=== PATIENT | male | born 1965 | race Native Hawaiian/Other Pacific Islander ===

== ENCOUNTER 2017-02-26 23:18 | Inpatient (IN) | payer OTHER ==
[~2017-02-26] VITALS: Ht 165.1 cm; Wt 204.1 kg
[~2017-02-26 23:18] MED LIST: AZITHROMYCIN 2250 MG PO; HYDROCODONE-AP1 EAC6 PO; LO-DOSE ASPIRIN81 M1 PO; LOVASTATIN 20 M20 MG PO; METFORMIN HCL500 MG PO; NITROGLYCERIN0.4 MG SUBLING; PRINIVIL20 M1 PO; PROTONIX40 M1 PO; UNKNOWN BP MED; UNKNOWN CHOLESTEROL; VENTOLIN HFA 1818 GM INH
[2017-02-26 23:20] VITALS: BP 136/96
[2017-02-26] MEDS ORDERED: INVOKANA100 MG PO (23:26)
[2017-02-26 23:40] LABS: HEMATOCRIT 48.9 % (42.0-52.0); HEMOGLOBIN 16.1 gm/dL (14.0-18.0); MCH 28.1 pg (26.0-34.0); MCV 85.1 fL (80.0-100.0); MPV 7.8 fl. (7.2-11.1); NUCLEATED RBCS 0 /100WBC; PLATELET COUNT* 186 thou/uL (150-400); RBC 5.75 mil/uL (4.50-6.00); RDW-CV 14.7 % (10.5-14.5); WBC 10.8 thou/uL (4.0-11.0)
[2017-02-26 23:50] LABS: ANION GAP 11 mmol/L (7-16); BUN 19 mg/dL (7-18); CALCIUM 8.2 mg/dL (8.5-10.1); CHLORIDE 102 mmol/L (98-107); CO2 26 mmol/L (21-32); CREATININE 1.2 mg/dL (0.6-1.3); GLUCOSE 138 mg/dL (70-99); POTASSIUM 3.8 mmol/L (3.5-5.1); SODIUM 139 mmol/L (136-145)
[2017-02-27] LABS: ALBUMIN 3.7 g/dL (3.4-5.0); ALKALINE PHOSPHATASE 101 U/L (46-116); LIPASE 1759 U/L (73-393); NT-PRO BRAIN NAT PEPTIDE 12 pg/mL (<300); SGOT 37 U/L (15-37); SGPT 54 U/L (30-65); TOTAL BILIRUBIN 0.6 mg/dL (<0.1-1.0); TOTAL PROTEIN 7.7 g/dL (6.4-8.2); TROPONIN-I LEVEL <0.06 ng/mL (<0.06)
[2017-02-27 00:14] LABS: INR 1.1; PROTIME 10.7 Seconds (9.20-11.50)
[2017-02-27 00:40] LABS: ABSOLUTE EOSINOPHILS 0.2 thou/uL (0.0-0.7); ABSOLUTE MONOCYTES 0.3 thou/uL (0.0-1.2); ABSOLUTE NEUTROPHILS 9.3 thou/uL (1.6-8.1); ANISOCYTOSIS Occasional
[2017-02-27 00:41] LABS: PLATELET ESTIMATE ADEQUATE
[2017-02-27 01:35] VITALS: BP 144/81
[2017-02-27] MEDS ORDERED: TRAMADOL 50 MG50 MG PO (07:57)
[2017-02-27 08:00] VITALS: BP 122/80
[2017-02-27 11:51] VITALS: BP 120/79
[2017-02-27 12:38] LABS: URINE BILIRUBIN NEGATIVE (Negative); URINE BLOOD NEGATIVE (Negative); URINE CLARITY CLEAR; URINE COLOR YELLOW; URINE GLUCOSE-RANDOM 2+ (Negative); URINE KETONES 1+ (Negative); URINE LEUKOCYTES-REFLEX NEGATIVE (Negative); URINE NITRITE-REFLEX NEGATIVE (Negative); URINE PROTEIN 1+ (Negative); URINE UROBILINOGEN 0.2 E.U./dl (0.2-1.0)
--- NOTE | 2017-02-27 13:13 | EKG ---
[place] [address] ELECTROCARDIOGRAM REPORT Name: DEEJAY FARIASDeidra Room: [address] ADM IN .R.#: [id number] Admission: 02/27/17 Attend Phys: Kasey Reynoso MD Discharge: Date of : 63 Report #: [id number] THIS REPORT FOR: //name// [facility] ED Test Date: 2017-02-26 Test Time: 23:24:22 Pat Name: DEEJAY FARIAS Department: Room: [facility] Gender: M Motion Picture Cameraman: : 1965 Requested By: Mary Villarreal Order Number: [id number] MD: Jacoby Rocha Measurements Intervals [place] Rate: 106 P: 38 WY: 153 QRS: -54 QRSD: 93 T: 54 QT: 343 QTc: 456 Interpretive Statements Sinus tachycardia Left anterior fascicular block Abnormal R-wave progression, early transition Baseline wander in lead(s) II,III,aVF,V5 Compared to ECG 08/14/2016 12:11:33 Sinus rhythm no longer present Electronically Signed On 02-27-2017 13:13:00 COOPERATIVE EDUCATION COORDINATOR by Jacoby Rocha [email or web address] <ELECTRONICALLY SIGNED> By: Jacoby Rocha MD, FACC 02/27/17 1313 2324 2324 Jacoby Rocha MD, FACC /EPI
[2017-02-27 16:19] VITALS: BP 112/66
--- NOTE | 2017-02-27 16:22 | 2DMMODE ---
[place] [address] 2 D/M-MODE ECHOCARDIOGRAM Name: TWAN FAR[facility]ARCELIA [facility] Room: [address] IN [facility]#: [id number] Admission: 02/27/17 Attend Phys: Kasey Reynoso, Discharge: Date of : 63 Date of Service: 02/27/17 1621 Report #: [id number] THIS REPORT FOR: //name// APPROVED REPORT Study performed: 02/27/2017 13:45:29 EXAM: Comprehensive 2D, Doppler, and color-flow Echocardiogram Patient Location: In-Patient Room #: 203 Status: routine BSA: 2.76 HR: 70 bpm BP: 144/81 mmHg Rhythm: NSR Other Information Technically limited study due to body habitus. Indications Pulmonary Embolism Dyspnea Chest Pain Echo Enhancing Agent Indication: Endocardial border delineation Agent(s) / Amount(s) Used: Optison 3 cc 2D Dimensions LVEF(%): 80.32 (>50%) IVSd: 15.11 (7-11mm) LVOT Diam: 22.56 (18-24mm) LVDd: 46.64 mm PWd: 11.47 (7-11mm) Ascending Ao: 34.79 (22-36mm) LVDs: 23.82 (25-40mm) Aortic Root: 36.50 mm Suarez's LVEF: 80.32 % Mitral Valve E/A Ratio: 0.90 MV Decel. Time: 171.66 ms MV E Max Rohan.: 0.91 m/s MV PHT: 49.78 ms MVA (PHT): 4.42 [place]2 [place] [address] 2 D/M-MODE ECHOCARDIOGRAM Name: DEE[facility]AS [facility] Room: [address] IN [facility]#: [id number] Admission: 02/27/17 Attend Phys: Kasey Reynoso, Discharge: Date of : 63 Date of Service: 02/27/17 1621 Report #: [id number] Pulmonary Valve PV Peak Rohan.: 0.93 m/s PV Peak Gr.: 3.45 mmHg Tricuspid Valve TR Peak Gr.: 43.24 mmHg RVSP: 48.00 mmHg Left Ventricle The left ventricle is normal size. There is normal LV segmental wall motion. Mild to moderate concentric left ventricular hypertrophy. Left ventricular systolic function is normal. The left ventricular ejection fraction is within the normal range. LVEF is 55-60%. Grade I - abnormal relaxation pattern. Right Ventricle The right ventricle is normal size. The right ventricular systolic function is normal. Atria The left atrium size is normal. The right atrium size is normal. Aortic Valve The aortic valve is normal in structure. No aortic regurgitation is present. There is no aortic valvular stenosis. Mitral Valve The mitral valve is normal in structure. There is no mitral valve regurgitation noted. No evidence of mitral valve stenosis. Tricuspid Valve The tricuspid valve is normal in structure. Trace tricuspid regurgitation. The RVSP is 45-50 mmHg. Pulmonic Valve The pulmonary valve is normal in structure. There is no pulmonic valvular regurgitation. Great Vessels The aortic root is normal in size. IVC is normal in size and collapses with >50% inspiration Pericardium There is no pericardial effusion. <Conclusion> The left [place] [address] 2 D/M-MODE ECHOCARDIOGRAM Name: DEEJAY FARIAS Room: [address] IN M.R.#: [id number] Admission: 02/27/17 Attend Phys: Kasey Reynoso, Discharge: Date of : 63 Date of Service: 02/27/171620 Report #: [id number] Mild to moderate concentric left ventricular hypertrophy. Left ventricular systolic function is normal. The left ventricular ejection fraction is within the normal range. LVEF is 55-60%. Grade I - abnormal relaxation pattern. Trace tricuspid regurgitation. The RVSP is 45-50 mmHg. <ELECTRONICALLY SIGNED> By: Roel Whitney MD, [facility] 02/27/17 162 20 20 Roel Whitney MD, FACC /INF
[2017-02-27 20:24] VITALS: BP 131/88
[2017-02-28 00:05] VITALS: BP 112/69
[2017-02-28 01:08] LABS: CHOLESTEROL 141 mg/dL (<200); HDL CHOLESTEROL 38 mg/dL (>40); LDL CHOLESTEROL 80 mg/dL (<100); TC:HDL 3.7 Ratio (Not establshd); TRIGLYCERIDE 116 mg/dL (<150); VLDL 23 mg/dL (<40)
[2017-02-28 01:09] LABS: SERUM ASSESSMENT CLEAR
[2017-02-28 04:00] VITALS: BP 116/77
--- NOTE | 2017-02-28 07:25 | CON ---
[address] [address] CONSULTATION Name: DEEJAY FARIAS [facility] [[email or web address]Deidra Room: [address] IN M.R.#: [id number] Admission: 02/27/17 Attend Phys: Kasey Reynoso MD Discharge: Date of : 63 Report #: [id number] THIS REPORT FOR: //name// CC: Kasey LEWIS REQUESTING PHYSICIAN: Ervin Carroll DO REASON FOR CONSULTATION: Pulmonary embolism and abnormal CAT scan. DISCUSSION: The patient is a very pleasant 51-year-old man who presented to the emergency department yesterday afternoon. He had a several day history of increasing shortness of breath. He was also intermittently having some chest pain. He points to the front part of his chest. It was episodic. He also noted that he almost passed out when he had walked to the bathroom at work. This was a definite new finding for him. He presented to the emergency department. He had lab x-rays done. CT scan done of his chest did reveal bilateral pulmonary emboli. He has been started on IV heparin. Findings also raise the possibility of infiltrate and/or mass. He is a remote smoker, quitting 40 years ago. No prior history of known pulmonary disease. Retrospectively, he does know he has had some intermittent cough. Not bring up any sputum. He initially denied fevers, but now retrospectively, he is also noting that he has had some breaking out in sweats when he was not really exerting himself. He had generalized body aches yesterday. He has had no prior history of thromboembolic disease or heart disease that he is aware of. He is a diabetic. He has had no recent trips over the last several months where he has been confined. He is fairly active with his job. Though, he notes he has been working essentially 7 days a week in long hours. He is up and down a lot and is very active that way, though he typically does not have to walk long distances. PAST MEDICAL HISTORY: Remarkable for diabetes mellitus type 2, hypertension, has had knee surgery in the past, peptic ulcer disease, and H. pylori. HOME MEDICATIONS: Metformin, lovastatin, Invokana, and lisinopril. SOCIAL HISTORY: Very remote smoker. He is , has 3 children. Works fulltime. He has been in [employer] close to 40 years. FAMILY HISTORY: Negative for thromboembolic disease. Positive for heart disease. REVIEW OF SYSTEMS: No positives as above. He has had some right shoulder pain, which he relates from an injury at work. [place] [address] CONSULTATION Name: DEEJAY FARIAS [facility] [[email or web address]Deidra Room: [address] IN .R.#: [id number] Admission: 02/27/17 Attend Phys: Kasey Reynoso MD Discharge: Date of : 63 Report #: [id number] He has not had any actual syncopal episodes, so he has come close. He has had the sweats as noted. Denies any difficulty swallowing. No vomiting. Denies any blood in his stools. He does tend have a little edema of his lower extremities. He does have some left calf pain. PHYSICAL EXAMINATION: GENERAL APPEARANCE: An obese, man. Alert, cooperative, quite pleasant. His O2 running via nasal cannula. He is in no acute distress at rest. He is currently pain free. He notes he does feel a little better than what he did yesterday when he first came in. HEENT: Head is normocephalic. Sclerae are nonicteric. NECK: Large, but supple without adenopathy. No JVD is noted. HEART: Tones are distant, but appear regular. No S3 is heard. LUNGS: Sounds are clear. Breath sounds are mildly diminished. related to his large body habitus. No wheezing or crackles are heard. No pleural rubs. He has no clubbing. ABDOMEN: Obese, but soft. EXTREMITIES: Lower extremities does have some trace pretibial edema. No definite cords are noted. He does complain of some discomfort in his left calf with palpation. SKIN: Warm and dry. NEUROLOGIC: He is alert and oriented x3. LABORATORY AND X-RAY FINDINGS: On his lab, BUN is 19, creatinine of 1.2, potassium is 3.8, bicarb of 26. Lipase 1759, calcium 8.2, AST 37, albumin 3.7. D-dimer was 15.39. PT and PTT were normal. White blood cell count 10,800, hemoglobin 16.1, hematocrit of 48.9 and platelets 186,000. Blood cultures were sent yesterday. His CT chest was reviewed. I also reviewed it with one of the radiologist. He does have bilateral pulmonary emboli seen. He does appear to have infiltrate versus mass posterior to the right hilum. Associated adenopathy in the right hilar area. There is also some sclerotic bone lesions, but they are not associated with any destructive bone lesions. EKG revealed sinus tachycardia. IMPRESSION: 1. Bilateral pulmonary emboli. Now on Heparin. 2. Abnormal CT scan. Possible mass versus infiltrate. Retrospectively, he has had some cough, generalized achiness, and malaise. Much of the findings noted on the CT scan may be pneumonia. It is certainly possible he could have an underlying malignancy. 3. Morbid obesity. 4. Elevated lipase. Etiology not clear. Has lack of GI findings and his pancreas was unremarkable on CT scan. 5. Diabetes mellitus [place] 2[place] [address] CONSULTATION Name: FANY FARIASCARLOS MUIRDeidra Room: [address] IN [place].#: [id number] Admission: 02/27/17 Attend Phys: Kasey Reynoso MD Discharge: Date of : 63 Report #: [id number] RECOMMENDATIONS: 1. At this point, need to treat his pulmonary emboli. Fully anticoagulate. Need to look into oral anticoagulation options he may have. 2. Treat for pneumonia (agree with current antibiotics). 3. We will also check viral panel. 4. We will need followup imaging in the future. I did discuss this with him. If the infiltrates do not clear, may need to consider biopsy. Did review with the radiologist, and if a biopsy is needed in the future, a CT-guided biopsy would probably provide the best yield. <ELECTRONICALLY SIGNED> By: Makenzie Coley MD 02/28/17 0725 1102 [id number] Coley MD /nt
[2017-02-28 08:00] VITALS: BP 137/79
[2017-02-28 12:12] VITALS: BP 142/88
[2017-02-28 16:19] VITALS: BP 116/74
[2017-02-28 19:50] VITALS: BP 114/77
[2017-03-01 00:08] VITALS: BP 104/83
[2017-03-01 04:05] VITALS: BP 120/82
[2017-03-01] MEDS ORDERED: XARELTO15 MG PO (08:15)
[2017-03-01] MEDS ORDERED: ATORVASTATIN CA20 MG PO (08:15)
[2017-03-01] MEDS ORDERED: AUGMENTIN 875-1 EACH PO (08:15)
[2017-03-01] MEDS ORDERED: XARELTO20 MG PO (08:15)
[2017-03-01 08:30] VITALS: BP 136/59
[2017-03-01 11:24] LABS: CALCIUM 8.2 mg/dL (8.5-10.1)
[2017-03-01 12:22] VITALS: BP 116/84
[2017-03-01 16:14] VITALS: BP 124/73
[2017-03-01 20:41] VITALS: BP 124/76
[2017-03-02] VITALS: BP 118/81
[2017-03-02 04:07] VITALS: BP 120/79
[2017-03-02 04:53] LABS: HEMATOCRIT 41.5 % (42.0-52.0); HEMOGLOBIN 13.5 gm/dL (14.0-18.0); MCH 27.7 pg (26.0-34.0); MCHC 32.6 g/dL (28.0-37.0); MPV 7.5 fl. (7.2-11.1); RBC 4.89 mil/uL (4.50-6.00); RDW-CV 14.7 % (10.5-14.5); WBC 9.1 thou/uL (4.0-11.0)
[2017-03-02 05:05] LABS: POTASSIUM 3.9 mmol/L (3.5-5.1)
[2017-03-02 07:45] VITALS: BP 148/86
[2017-03-02] MEDS ORDERED: OXYCODONE HCL 55 MG PO (10:30)
[2017-03-02 10:40] VITALS: BP 148/86
[2017-03-02 11:09] VITALS: BP 148/86
[2017-03-02 13:02] VITALS: BP 148/86
[2017-03-04 02:05] LABS: ADENOVIRUS Negative (Negative); INFLUENZA A Negative (Negative); INFLUENZA B Negative (Negative); METAPNEUMOVIRUS Negative (Negative); PARAINFLUENZA 1 Negative (Negative); PARAINFLUENZA 2 Negative (Negative); PARAINFLUENZA 3 Negative (Negative); RHINOVIRUS Negative (Negative); RSV A Negative (Negative); RSV B Negative (Negative)
--- NOTE | 2017-03-11 16:26 | CON ---
[address] [address] CONSULTATION Name: [facility] Room: [address]#: [id number] Admission: 02/27/17 Attend Phys: Kasey Reynoso MD Discharge: 03/02/17 Date of : 63 Report #: [id number] THIS REPORT FOR: //name// CC: Dai Reynoso [facility] DICTATED BY: Marilia Castillo [facility] DATE OF SERVICE: 02/27/2017 Please note at the time of this dictation, the patient was seen and physically examined by myself. REASON FOR CONSULTATION: Pancreatitis. HISTORY OF PRESENT ILLNESS: This is a 51-year-old male presented to the Emergency Room with some left-sided chest pain that started yesterday. He states the chest pain was intermittent in nature and he began to have some more shortness of breath, radiating. Denied any radiation or any nausea or vomiting with any of this. He states he has had a lot of stress lately and has not been getting enough sleep due to the increased workload in his job. The patient has never had a heart attack or any other cardiovascular incidences before. He has never seen a workforce management manager either. The patient did recently start Invokana for his diabetes approximately 2 months ago. ALLERGIES: No known drug allergies. MEDICATIONS FROM HOME: Include metformin, Mevacor, Prinivil and Invokana. PAST MEDICAL HISTORY: Type 2 diabetes, hypertension, and high cholesterol. PAST SURGICAL HISTORY: Bilateral knee surgery. FAMILY HISTORY: Negative for any GI or female cancers. SOCIAL HISTORY: Denies any alcohol, tobacco or illegal drug use. REVIEW OF SYSTEMS: Twelve-point review of systems is essentially negative except what is mentioned in the HPI. PHYSICAL EXAMINATION: VITAL SIGNS: Temperature 36.5, pulse 86, respirations 21, blood pressure 120/79. HEART: Regular rate and rhythm. L[place]GS: [place] [address] CONSULTATION Name: DEE[facility]AS [facility] Room: [address]#: [id number] Admission: 02/27/17 Attend Phys: Kasey Reynoso MD Discharge: 03/02/17 Date of : 63 Report #: [id number] ABDOMEN: Soft, positive bowel sounds in all 4 quadrants with tenderness noted in the epigastric to left and right upper quadrant areas. NEUROLOGIC: The patient is morbidly obese. LABORATORY DATA: Hemoglobin 16.1, hematocrit 48.9, white count is 10.8, platelets 186. PT is 10.7, INR 1.1. Sodium 139, potassium 3.8, chloride 102, CO2 26, BUN is 19, creatinine is 1.2, GFR 64, glucose is 138. LFTs are completely normal. Lipase is 1759. CT showed a right lower lobe lung mass, likely pneumonia with some reactive adenopathy noted. Also, he had a positive D-dimer that was 15.39 and indicative of PE also noted on CT scan. IMPRESSION: 1. Elevated lipase. 2. Pneumonia. 3. Pulmonary embolism. 4. Anticoagulant therapy, heparin. 5. Diabetic. PLAN: 1. We will stop his Invokana, may be likely cause for his elevated lipase since he recently started 2 months ago. 2. Continue his IV fluids. 3. The patient will need an outpatient colon screening since he has never had one and he is greater than 50 years old. 4. We will check lipids in the a.m. Thank you for allowing us to participate in this patient's care. Please do not hesitate to call with any questions in regard to this consult. <ELECTRONICALLY SIGNED> By: Randy Arboleda MD 03/11/17 1626 1220 1846Randy Arboleda MD /nt
--- NOTE | 2017-03-11 16:26 | CON ---
[address] [address] CONSULTATION Name: DEEJAY FAR[facility]AS [facility] Room: [address] IN M.R.#: [id number] Admission: 02/27/17 Attend Phys: Kasey Reynoso MD Discharge: 03/02/17 Date of : 63 Report #: [id number] THIS REPORT FOR: //name// CC: Kasey DE JESUSCKMAN DATE OF SERVICE: 02/27/2017 ADDENDUM This is an addendum to consult #[id number]. This is a 51-year-old male with morbid obesity, who presented with elevated lipase of 1700. The patient has recently been started on Invokana for the past 2 months. He has diabetes mellitus and on chronic anticoagulation therapy. During this hospitalization, he was found to have pulmonary embolism for which he is being treated. We will stop the Invokana as this can cause pancreatitis. There is no evidence of biliary causes of pancreatitis. I will also check lipids to make sure that he does not have hypertriglyceridemia. We will continue IV fluids and follow up on his lipase. <ELECTRONICALLY SIGNED> By: Randy Arboleda MD 03/11/17 1626 1413 2137Randy Arboleda MD /nt
--- NOTE | 2017-03-24 09:42 | CON ---
[address] [address] CONSULTATION Name: DEEJAY [facility]ARIAS [facility] Room: [address] IN ..#: [id number] Admission: 02/27/17 Attend Phys: Kasey Reynoso MD Discharge: 03/02/17 Date of : 63 Report #: [id number] THIS REPORT FOR: //name// CC: Kasey LEWIS DICTATED BY: Jacoby Lowe DO, RESIDENT ORTHOPEDIC CONSULTATION CHIEF COMPLAINT: Right shoulder pain. HISTORY OF PRESENT ILLNESS: The patient is a very pleasant 51-year-old male admitted to [facility] on 02/27/2017 secondary to chest pain. He has history of diabetes, hypertension and elevated lipase. He was diagnosed with bilateral pulmonary emboli as well as acute pancreatitis. We are consulted for right shoulder pain. He is scheduled to potentially go home tomorrow in regards to the right shoulder. He states that around Day, he was at work and he was going to life a bin, he felt a pop and pain in his right shoulder. Prior to this, he had no significant pain. Reportedly, there has been an MRI done at outpatient facility, which we are unable to obtain over the weekend, which he stated there was some pathology seen on this MRI, but he is not sure what the terminology was. He is right-hand dominant. He complains of pain with any motion of the shoulder and lifting with the right arm. He has difficulty sleeping on that side. PAST MEDICAL HISTORY: Significant for bronchitis, chest pain, elevated lipase, pancreatitis, pulmonary embolism and shortness of breath. ALLERGIES: No known drug allergies. REVIEW OF SYSTEMS: A 14-point review of systems was obtained, negative other than mentioned above. PHYSICAL EXAMINATION: GENERAL: He is alert and oriented, in no acute distress. EYES: Extraocular muscles are fully intact. NARES: No rhinitis or epistaxis. Nasal cannula in place. HEART: Regular. LUNGS: No increased respiratory effort. EXTREMITIES: Examination of the right shoulder shows he does have pain with any flexion or abduction above 40 degrees. Exam is quite difficult secondary to pain. He is tender over the acromion and the trapezius muscle. Distal motor and sensory grossly intact. X-rays 3 views of the right shoulder reviewed today and I did discuss with Dr. Yaron Bliss, radiologist, what appears to be a base of the [place] [address] CONSULTATION Name: DEEJAY FARIAS Room: [address] IN [facility]#: [id number] Admission: 02/27/17 Attend Phys: Kasey Reynoso MD Discharge: 03/02/17 Date of : 63 Report #: [id number] fracture, less like an os acromiale. IMPRESSION: A 4- or 5-week history of right shoulder pain with x-ray findings consistent with possible base of the acromion fracture nondisplaced versus os acromiale. TREATMENT PLAN: Discussed in detail with the patient. Again, unfortunately, we are unable to obtain MRI over the weekend as this was done at an outpatient facility at [place]. His exam is consistent with possible base of the acromion fracture. We will get him a sling. Unfortunately, we cannot do a steroid shot as if this is a fracture, this can impede the healing. I would like him to avoid any heavy lifting with that hand. We should probably repeat x-rays in 10 to 14 days. If this were a fracture, this could take 8-12 weeks to heal, should not need any surgical intervention. 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 He can ice the shoulder as needed for pain as well. <ELECTRONICALLY SIGNED> By: Jacoby Lowe DO 03/24/17 0942 1402 [id number] Lowe DO /nt
== END 2017-03-02 14:17 | disposition home or self-care (01) | DRG 177 ==
LOC: M.ERS 23:18 → M.TBA-ER 02-27 00:38 → M.ERS 02-27 00:38 → M.2W 02-27 02:14 → M.TBA-ER 02-27 02:14 → M.2W 02-27 02:55
PROVIDERS: Emergency Medicine; Internal Medicine; Internal Medicine Pulmonary Disease; Nurse Practitioner Adult Health; ADMIT Internal Medicine
DX: J15.6 Pneumonia due to other Gram-negative bacteria (principal); K85.90 Acute pancreatitis without necrosis or infection, unspecified; I26.99 Other pulmonary embolism without acute cor pulmonale; Z68.45 Body mass index [BMI] 70 or greater, adult; J18.9 Pneumonia, unspecified organism; Z79.899 Other long term (current) drug therapy; R59.9 Enlarged lymph nodes, unspecified; E78.5 Hyperlipidemia, unspecified; E66.01 Morbid (severe) obesity due to excess calories; E11.9 Type 2 diabetes mellitus without complications; I10 Essential (primary) hypertension; E78.00 Pure hypercholesterolemia, unspecified; Z87.891 Personal history of nicotine dependence; Z87.11 Personal history of peptic ulcer disease; Z79.01 Long term (current) use of anticoagulants

== ENCOUNTER 2017-03-09 17:50 | Emergency (ER) | payer OTHER ==
[~2017-03-09] VITALS: Ht 162.6 cm; Wt 204.1 kg
[~2017-03-09 17:50] MED LIST changes: +ATORVASTATIN CA20 MG PO; +AUGMENTIN 875-1 EACH PO; +INVOKANA100 MG PO; +OXYCODONE HCL 55 MG PO; +TRAMADOL 50 MG50 MG PO; +XARELTO15 MG PO; +XARELTO20 MG PO
[2017-03-09 18:32] LABS: ABSOLUTE BASOPHILS 0.1 thou/uL (0.0-0.2); ABSOLUTE EOSINOPHILS 0.5 thou/uL (0.0-0.7); ABSOLUTE LYMPHOCYTES 1.5 thou/uL (0.8-5.3); ABSOLUTE MONOCYTES 0.6 thou/uL (0.0-1.2); ABSOLUTE NEUTROPHILS 8.1 thou/uL (1.6-8.1); BASOPHILS 0.6 %; EOSINOPHILS 4.5 %; HEMOGLOBIN 13.6 gm/dL (14.0-18.0); LYMPHOCYTES 14.3 %; MCH 27.6 pg (26.0-34.0); MCHC 32.4 g/dL (28.0-37.0); MCV 85.4 fL (80.0-100.0); MONOCYTES 5.4 %; MPV 7.8 fl. (7.2-11.1); NUCLEATED RBCS 0 /100WBC; PLATELET COUNT* 220 thou/uL (150-400); POLYS 75.2 %; RBC 4.92 mil/uL (4.50-6.00); RDW-CV 14.7 % (10.5-14.5); WBC 10.7 thou/uL (4.0-11.0)
[2017-03-09 18:39] LABS: ANION GAP 8 mmol/L (7-16); BUN 18 mg/dL (7-18); CALCIUM 8.9 mg/dL (8.5-10.1); CHLORIDE 101 mmol/L (98-107); CO2 28 mmol/L (21-32); CREATININE 0.9 mg/dL (0.6-1.3); GLUCOSE 203 mg/dL (70-99); POTASSIUM 3.8 mmol/L (3.5-5.1); SODIUM 137 mmol/L (136-145)
[2017-03-09 18:42] LABS: APTT 28.3 Seconds (25.0-31.3); INR 1.1; PROTIME 10.6 Seconds (9.20-11.50)
[2017-03-09 18:50] LABS: ALBUMIN 3.1 g/dL (3.4-5.0); ALKALINE PHOSPHATASE 70 U/L (46-116); NT-PRO BRAIN NAT PEPTIDE 15 pg/mL (<300); SGOT 20 U/L (15-37); SGPT 31 U/L (30-65); TOTAL BILIRUBIN 0.2 mg/dL (<0.1-1.0); TROPONIN-I LEVEL <0.06 ng/mL (<0.06)
[2017-03-09 21:08] VITALS: BP 140/83
--- NOTE | 2017-03-10 11:19 | EKG ---
[place] [address] ELECTROCARDIOGRAM REPORT Name: DEEJAY FARIAS Room: [facility]#: [id number] Admission: 03/09/17 Attend Phys: Discharge: 03/09/17 Date of : 63 Report #: [id number] THIS REPORT FOR: //name// [facility] ED Test Date: 2017-03-09 Test Time: 17:57:10 Pat Name: DEEJAY FARIAS Department: Room: Gender: M Process Technician: JUAN : 1965 Requested By: Alejandro Tomas Order Number: [id number] MD: Jacoby Rocha Measurements Intervals [place] Rate: 82 P: 42 WV: 163 QRS: -32 QRSD: 93 T: 77 QT: 382 QTc: 446 Interpretive Statements Sinus rhythm Left axis deviation Low voltage, precordial leads Abnormal R-wave progression, early transition Compared to ECG 02/26/2017 23:24:22 Sinus tachycardia no longer present Electronically Signed On 03-10-2017 11:19:33 STRIP PICKER by Jacoby Rocha [email or web address] <ELECTRONICALLY SIGNED> By: Jacoby Rocha MD, [facility] 03/10/17 1119 1757 1757 Jacoby Rocha MD, [facility] /EPI
== END 2017-03-09 21:08 | disposition home or self-care (01) ==
LOC: M.ERS 17:50
PROVIDERS: Family Medicine
DX: I26.99 Other pulmonary embolism without acute cor pulmonale (principal); R06.00 Dyspnea, unspecified; I10 Essential (primary) hypertension; E11.9 Type 2 diabetes mellitus without complications; E78.00 Pure hypercholesterolemia, unspecified

== ENCOUNTER 2017-03-21 16:36 | Inpatient (IN) | payer OTHER ==
[~2017-03-21] VITALS: Ht 172.7 cm; Wt 186.9 kg
[2017-03-21 16:41] VITALS: BP 174/98
[2017-03-21 17:18] LABS: ABSOLUTE EOSINOPHILS 0.4 thou/uL (0.0-0.7); ABSOLUTE LYMPHOCYTES 1.4 thou/uL (0.8-5.3); ABSOLUTE MONOCYTES 0.6 thou/uL (0.0-1.2); ABSOLUTE NEUTROPHILS 10.5 thou/uL (1.6-8.1); BASOPHILS 0.3 %; EOSINOPHILS 3.2 %; HEMATOCRIT 41.9 % (42.0-52.0); HEMOGLOBIN 13.7 gm/dL (14.0-18.0); MCH 27.6 pg (26.0-34.0); MCHC 32.7 g/dL (28.0-37.0); MCV 84.4 fL (80.0-100.0); MONOCYTES 4.6 %; NUCLEATED RBCS 0 /100WBC; PLATELET COUNT* 163 thou/uL (150-400); POLYS 80.9 %; RBC 4.97 mil/uL (4.50-6.00); RDW-CV 14.7 % (10.5-14.5); WBC 13.1 thou/uL (4.0-11.0)
[2017-03-21 17:32] LABS: ANION GAP 9 mmol/L (7-16); BUN 17 mg/dL (7-18); CALCIUM 8.8 mg/dL (8.5-10.1); CHLORIDE 102 mmol/L (98-107); CO2 30 mmol/L (21-32); CREATININE 1.1 mg/dL (0.6-1.3); GLUCOSE 114 mg/dL (70-99); SODIUM 141 mmol/L (136-145)
[2017-03-21 17:33] LABS: APTT 29.1 Seconds (25.0-31.3); INR 1.1; PROTIME 10.7 Seconds (9.20-11.50)
[2017-03-21 17:49] LABS: ALBUMIN 3.4 g/dL (3.4-5.0); ALKALINE PHOSPHATASE 83 U/L (46-116); CK-MB MASS 1.7 ng/mL (<0.5-3.6); LIPASE 198 U/L (73-393); MAGNESIUM 1.7 mg/dL (1.8-2.4); NT-PRO BRAIN NAT PEPTIDE 48 pg/mL (<300); SGOT 25 U/L (15-37); SGPT 36 U/L (30-65); TOTAL BILIRUBIN 0.5 mg/dL (<0.1-1.0); TOTAL PROTEIN 7.3 g/dL (6.4-8.2); TROPONIN-I LEVEL <0.06 ng/mL (<0.06)
[2017-03-21 20:00] VITALS: BP 174/100
[2017-03-21 20:15] VITALS: BP 107/66
[2017-03-22 00:20] VITALS: BP 143/94
[2017-03-22 04:21] VITALS: BP 123/77
[2017-03-22 05:26] LABS: ABSOLUTE EOSINOPHILS 0.4 thou/uL (0.0-0.7); ABSOLUTE LYMPHOCYTES 1.3 thou/uL (0.8-5.3); ABSOLUTE MONOCYTES 0.7 thou/uL (0.0-1.2); ABSOLUTE NEUTROPHILS 8.9 thou/uL (1.6-8.1); BASOPHILS 0.3 %; EOSINOPHILS 3.7 %; HEMATOCRIT 40.4 % (42.0-52.0); HEMOGLOBIN 13.4 gm/dL (14.0-18.0); LYMPHOCYTES 11.8 %; MCH 27.6 pg (26.0-34.0); MCHC 33.2 g/dL (28.0-37.0); MCV 83.3 fL (80.0-100.0); MONOCYTES 5.9 %; MPV 7.4 fl. (7.2-11.1); NUCLEATED RBCS 0 /100WBC; PLATELET COUNT* 150 thou/uL (150-400); POLYS 78.3 %; RBC 4.84 mil/uL (4.50-6.00); RDW-CV 14.8 % (10.5-14.5); WBC 11.4 thou/uL (4.0-11.0)
--- NOTE | 2017-03-22 05:34 | NUR ---
PATIENT [facility]. PATIENT ACCOMPANIED BY ED NURSING STAFF AND SPOUSE. PATIENT ACCLIMATED TO FLOOR, ROOM, AND CALL LIGHT. PATIENT ON 2L O2 AND SATTING AT WELL ABOVE 95%. LUNG SOUNDS COURSE/CRACKLES, BUT PATIENT DENIES COUGH. PULMONOLOGY CONSULT ORDERED. PATIENT VOICED CONCERNS ABOUT RECURRING ILLNESS AND HIS EMPLOYMENT. PATIENT HAS REQUESTED TO SPEAK WITH PHYSICIANS ABOUT FMLA IN ORDER TO SECURE HIS POSITION WITHIN HIS WORKPLACE. PATIENT CURRENTLY A/O X 4 AND VSS. OURLY ROUNDS PERFORMED. NURSING TO FOLLOW UP NECESSARY. ALL FALL PRECAUTIONS IN PLACE, INCLUDING CALL LIGHT WITHIN REACH. WILL CONTINUE TO MONITOR CLOSELY.
[2017-03-22 06:29] LABS: CALCIUM 8.8 mg/dL (8.5-10.1); MAGNESIUM 1.8 mg/dL (1.8-2.4); POTASSIUM 3.9 mmol/L (3.5-5.1)
[2017-03-22 08:15] VITALS: BP 136/91
--- NOTE | 2017-03-22 11:46 | EKG ---
[place] [address] ELECTROCARDIOGRAM REPORT Name: NIKTWAN SHARMAARCELIA WOODDeidra Room: [address] ADM IN .R.#: [id number] Admission: 03/21/17 Attend Phys: Moe Flor MD Discharge: Date of : 63 Report #: [id number] THIS REPORT FOR: //name// [facility] ED Test Date: 2017-03-21 Test Time: 16:42:33 Pat Name: DEEJAY FARIAS Department: Room: [facility] Gender: M Chemical Research Engineer: FRANKO : 1965 Requested By: Davis Cuellar Order Number: [id number] MD: Roel Whitney Measurements Intervals [place] Rate: 90 P: 44 WV: 154 QRS: -11 QRSD: 90 T: 71 QT: 364 QTc: 446 Interpretive Statements Sinus rhythm Low voltage, precordial leads Abnormal R-wave progression, early transition Minimal ST elevation, inferior leads Compared to ECG 03/09/2017 17:57:10 ST (T wave) deviation now present Left-axis deviation no longer present Electronically Signed On 03-22-2017 11:46:31 MANAGER SOLUTION by Roel Whitney [email or web address] <ELECTRONICALLY SIGNED> By: Roel Whitney MD, FACC 03/22/17 1146 1642 1642 Roel Whitney MD, FACC /EPI
--- NOTE | 2017-03-22 13:08 | CON ---
[address] [address] CONSULTATION Name: TWAN FARIASARCELIA [facility] Room: [address] IN M.R.#: [id number] Admission: 03/21/17 Attend Phys: Moe Flor MD Discharge: Date of : 63 Report #: [id number] THIS REPORT FOR: //name// CC: Moe Flor [facility] DATE OF SERVICE: 03/22/2017 REQUESTING PHYSICIAN: Moe Flor M.D. REASON FOR CONSULTATION: Chest pain, history of pulmonary embolism, abnormal chest x-ray. DISCUSSION: The patient is a pleasant 51-year-old man who presented to the Emergency Department yesterday evening. This was for complaints of increasing chest discomfort and shortness of breath. This essentially is unchanged relative to what it was last month when he was here and treated for pulmonary emboli. At that time, he had presented on 02/27/2017. He had had several days of increasing shortness of breath and chest pain. He had near syncope at that time. Bilateral pulmonary emboli were noted. He did have an area of dense consolidation versus mass seen in right lower lobe area. It was not clear at that time if it was pneumonic or could have an underlying mass. Also, there was possibility of pulmonary infarct. He was treated with full anticoagulation therapy. At the time he was discharged, he was sent out on Xarelto. He states he has been able to get that filled and he has been taking the medication. It does appear he returned to work immediately. At the time he was discharged he was on oxygen. However, though he has been using it at home, it has been p.r.n. at work. He is extremely concerned as he has not been able to keep up at work and he is the sole bread winner for his family. He has no prior history of documented thromboembolic disease. No family history of such. He has not had any recent fevers. He does have his chronic shortness of breath. Even short distances, which he could walk without any difficulty several months ago, he is having trouble with. He is having almost continuous pain anteriorly on his chest. He does point to the midsternal area and just over to the right as well. It is worse when he takes in a deep breath. He also notes it feels worse when he tries to swallow. He has had some vomiting. His sputum has been brown, but he denies any yana hemoptysis. He has not noted any blood in his stools. He did present to the Emergency Department on 03/09/2017. He was evaluated at that time, did have a followup CT scan done. It did show some mild improvement in his bilateral pulmonary emboli. However, it continued to show considerable amount of infiltrate [place] [address] CONSULTATION Name: DEEJAY FARIAS [facility] Room: [address] IN ..#: [id number] Admission: 03/21/17 Attend Phys: Moe Flor MD Discharge: Date of : 63 Report #: [id number] He is a very remote smoker, quit greater than 40 years ago. He has had no prior history of known pulmonary disease. PAST MEDICAL HISTORY: Remarkable for diabetes mellitus type 2, hypertension, has a history of peptic ulcer disease and H. pylori. History of prior knee surgery. SOCIAL HISTORY: He is . Remote smoker as noted. He has been in [facility] for around 40 years. He has three children. FAMILY HISTORY: Negative for thromboembolic disease. It is positive for heart disease. REVIEW OF SYSTEMS: Noted above. He has also had some right shoulder pain. He attributes that to an injury. He does get lightheaded. He has not had any true syncopal episodes. Did have near syncope when he was hospitalized here last month. Has the pain as noted. Not aware of any fevers at home. He does note he has had a daughter who has been sick. No swelling in his lower extremities. PHYSICAL EXAMINATION: GENERAL: A large Citizen Of [place] male. Has O2 running via nasal cannula. He is alert, conversant. His is at the bedside. He is in no acute distress at rest. HEENT: head is normocephalic and atraumatic. Sclerae are nonicteric. Mucous membranes look moist. NECK: Negative for adenopathy. HEART: Regular rate. No murmur or gallop is heard. LUNGS: Sounds are clear, though breath sounds are somewhat diminished given his large body habitus. Excursion is equal. ABDOMEN: Large, but soft, without appreciable hepatosplenomegaly. No guarding or rebound tenderness is noted. EXTREMITIES: No clubbing. Lower extremities are negative for edema. No calf tenderness. SKIN: Warm and dry. LABORATORY AND X-RAY FINDINGS: Chest x-ray done shows some mild cardiomegaly. Some of this could be his body habitus. He does have some mild infiltrates noted perihilar bilaterally. A little bit more prominent than his prior studies. He did have a CT angiogram done of his chest on 03/09/2017. Also, one in January when he was here. Pulmonary emboli is noted. He does have dense area of consolidation versus mass more medially right lower lobe. Some associated right hilar adenopathy with that. Echocardiogram done last month did show left ventricular hypertrophy with some diastolic dysfunction. Right ventricular was normal. Had no valvular heart disease. BUN is 14, creatinine 1.0, potassium is 3.9. Lactic acid was 0.9. D-dimer yesterday was 4.69. INR 1.1. Hypercoagulable [place] [address] CONSULTATION Name: DEEJAY FARIAS Room: [address]#: [id number] Admission: 03/21/17 Attend Phys: Moe Flor MD Discharge: Date of : 63 Report #: [id number] unremarkable. White blood cell count 11,400, hemoglobin 13.4, hematocrit 40.4, platelets 150,000. CRP is 36. He did have a viral panel done when he was here last month and that was negative. IMPRESSION: 1. Bilateral pulmonary emboli, was diagnosed last month. He has been on Xarelto. Per his account, he does have the medication and has been compliant with that. 2. Right lung infiltrate. The area was extremely dense and almost mass-like. It could be a pulmonary infarct. However, there was also the concern he could have an underlying malignancy. I did review his films last month when he was an inpatient. The area could potentially be biopsied by Interventional Radiology if findings persist. 3. Possible new lower respiratory tract infection. 4. Complaints of dysphagia. 5. Obesity. PLAN: 1. I will continue the anticoagulation therapy. We may need to put Xarelto on hold and use short acting medication if biopsy needs to be done. 2. We will repeat CT angiogram of his chest. I need to evaluate that area. May need to have films reviewed with IR to see if he is a candidate for biopsy. 3. Continue neb treatments. Also, check sputum and respiratory viral panel. 4. He is extremely concerned. It is not clear if he has disability insurance. He has been trying to work despite being quite symptomatic. <ELECTRONICALLY SIGNED> By: Makenzie Coley MD 03/22/17 1308 [id number] [id number] Coley MD /nt
[2017-03-22 15:50] VITALS: BP 133/85
--- NOTE | 2017-03-22 17:57 | NUR ---
PATIENT REMAINED ALERT AND ORIENTED X'S 4. VITAL SIGNS AND SPO2 STABLE. IV CLEAN, FLUIDS INFUSING. RECIEVED BREATHING TREATMENTS. TOLERATED DIET, NO NAUSEA AND VOMITING. PAIN WELL CONTROLLED WITH PAIN MEDS. SENT OFF H1N1 SWAB. COMPLETED HOURLY ROUNDING. CALL LIGHT WITHIN REACH. WILL USE CONTINUE TO MONITOR.
[2017-03-22 20:00] VITALS: BP 141/96
[2017-03-23 00:08] VITALS: BP 106/57
[2017-03-23 04:13] VITALS: BP 118/71
--- NOTE | 2017-03-23 07:31 | NUR ---
Alert and oriented x 4. He's been sitting up in the chair with O2 at 3L n/c and recieving breathing treatments. He denies pain or discomfort. He's up independently in the room. He slept sitting up in the chair.
[2017-03-23 08:44] VITALS: BP 153/95
[2017-03-23 16:34] VITALS: BP 144/81
--- NOTE | 2017-03-23 18:15 | NUR ---
PT UP IN ROOM THROUGHOUT SHIFT. PT ON O2@2L WHICH HE HAS BEEN ON AT HOME. DENIES CP OR SOA. PT TOLERATING PO WELL. AT BS.
[2017-03-23 20:00] VITALS: BP 125/77
[2017-03-24 04:00] VITALS: BP 126/74
[2017-03-24 04:27] LABS: ABSOLUTE BASOPHILS 0.1 thou/uL (0.0-0.2); ABSOLUTE EOSINOPHILS 0.5 thou/uL (0.0-0.7); ABSOLUTE LYMPHOCYTES 1.2 thou/uL (0.8-5.3); ABSOLUTE MONOCYTES 0.6 thou/uL (0.0-1.2); ABSOLUTE NEUTROPHILS 8.6 thou/uL (1.6-8.1); BASOPHILS 1.3 %; EOSINOPHILS 4.5 %; HEMATOCRIT 38.3 % (42.0-52.0); HEMOGLOBIN 13.4 gm/dL (14.0-18.0); LYMPHOCYTES 10.9 %; MCHC 35.1 g/dL (28.0-37.0); MCV 79.9 fL (80.0-100.0); MPV 7.5 fl. (7.2-11.1); NUCLEATED RBCS 0 /100WBC; PLATELET COUNT* 157 thou/uL (150-400); POLYS 78.3 %; RBC 4.79 mil/uL (4.50-6.00); RDW-CV 14.7 % (10.5-14.5)
[2017-03-24 04:50] LABS: ALBUMIN 3.3 g/dL (3.4-5.0); CALCIUM 8.8 mg/dL (8.5-10.1); CREATININE 1.1 mg/dL (0.6-1.3); POTASSIUM 4.7 mmol/L (3.5-5.1); TOTAL BILIRUBIN 0.5 mg/dL (<0.1-1.0); TOTAL PROTEIN 6.7 g/dL (6.4-8.2)
--- NOTE | 2017-03-24 05:26 | NUR ---
Alert and oriented x 4. He is up independently in the room with O2 at 1.5L n/c. (pulm) wrote ordes for Case management to get settings for patients home bipap machine and get supplies set up for home. RT wrote in patients chart reply to . Message sent to case management to read reply in chart and set up home management as ordered. also wanted to have patient do a lung biopsy but at this time it is not ordered but i did advise patient to not eat or drink until we find out if they will do the lung biopsy. He has slept up in chair.
[2017-03-24 08:15] VITALS: BP 152/86
[2017-03-24 16:00] VITALS: BP 156/85
--- NOTE | 2017-03-24 17:04 | NUR ---
MET WITH PT.AND . DID NOT SPEAK CHINESE. PT.HAS BIPAP,INFORMATION IN [facility] SAYS [facility]. ALSO HAS PRN O2. TANK SAYS ELVIE. HE SAID HE HOPES TO RETURN TO WORK WHEN THE DR.SAYS HE CAN. HE SAID ITS FAST PACED WORK. HE CAN SIT FOR A LITTLE WHILE BUT THEN HAS TO BE UP. HE ALSO C/O MANY INSECTS IN HIS HOUSE. THEY ARE FILLED WITH BLOOD SO HE THINKS THEY ARE BITING HIM AND HIS FAMILY. HE HAS SMALL CHILDREN. SAID HE HAS C/O TO [facility] BUT THEY DO NOTHING ABOUT IT. HE ALSO WOULD LIKE A HOUSE CLOSER UP TO FRONT OF NEIGHBORHOOD. HE DOES NOT FEEL THEY ARE SAFE WHERE THEIR HOME IS LOCATED. IT IS MANAGED BY [facility] [phone]. CM CALLED [facility] AT [phone]. THEY HAVE NO RECORD OF PT.ON THEIR SERVICE. LAST HOSPITALIZATION SAID PT.HAS O2 THROUGH [facility]. WILL CHECK BACK WITH PT.TOMORROW ABOUT CO.OF BIPAP.
--- NOTE | 2017-03-24 19:34 | NUR ---
ALERT AND ORIENTED X4. UP AD ERIKA IN ROOM. HAD SOME EPIGASTRIC PAIN THIS AFTERNOON AND RECIEVED A GI COCKTAIL. DENIES NAUSEA. IV IS PATENT AND SALINE LOCKED. VSS ON 1.5 L. CALL LIGHT IS WITHIN REACH. NURSING WILL CONTINUE TO MONITOR.
[2017-03-24 20:00] VITALS: BP 147/60
--- NOTE | 2017-03-25 06:58 | NUR ---
Assumed patient care at 1900. Patient had several questions regarding medical management of ailments and how he was going to "get healthier" because "i am too oung to have all these problems. director utilization management completed as documented. hourly rounding completed. No comlaints of pain or discomfort. IV patent. No changes noted in status overnight
[2017-03-25 08:00] VITALS: BP 144/96
[2017-03-25] MEDS ORDERED: LEVAQUIN 750 M750 MG PO (08:53)
[2017-03-25] MEDS ORDERED: PREDNISONE 20 M20 MG PO (08:53)
[2017-03-25] MEDS ORDERED: LASIX 20 MG TAB20 MG PO (08:57)
[2017-03-25] MEDS ORDERED: POTASSIUM CHLO10 MEQ PO (08:57)
[2017-03-25 11:49] VITALS: BP 144/96
[2017-03-25 12:15] VITALS: BP 144/96
--- NOTE | 2017-03-25 13:00 | NUR ---
PT.HAS HOME CONCENTRATOR AND PORTABLE O2 TANK AT HOME WITH [facility]. HAS PORTABLE HERE AT HOSPITAL,ALSO. IT WAS FOUND OUT THAT PT.RECEIVED BIPAP FROM [facility] 6 YRS AGO. HE WAS NO LONGER IN THEIR CURRENT SYSTEM. KESHA SPOKE WITH IRVIN/[facility] [phone]. THEY WOULD BE GLAD TO TAKE HIM ON A CUSTOMER. FAXED FACE SHEET, PROGRESS NOTE AND ORDERS TO HER. PT.HAD ORDERS FOR PET SCAN. FAXED TO [facility] SCHEDULING DEPT. ISMAEL CALLED KESHA AND SHE WILL FAX SPECIAL FORM TO 'S OFFICE FOR HIM TO FILL OUT REGARDING PET SCAN. SHE WILL THEN SCHEDULE TEST WITH PT. PT.HAS HH ORDERS. SPOKE WITH TIMMY/[facility] AND FAXED HER FACE SHEET,H&P,DISCHARGE SUMMARY. THEY WILL CALL PT.TO SET UP APPT. KESHA CALLED HIS PANTRY STEWARD/STEWARDESS,PAOLA TO PASS ALONG HIS C/O INSECTS IN HIS HOME. SHE SAID SHE WOULD SEND SOMEONE OUT FOR A RESIDENCE CHECK. SHE SAID PT.WILL NEED TO FILL OUT A TRANSFER FORM TO BE ABLE TO BE CONSIDERED FOR MOVING TO A DIFFERENT HOUSE. INFORMED PT.OF ALL OF THE ABOVE.
[2017-03-25 16:48] VITALS: BP 144/96
--- NOTE | 2017-03-25 16:49 | NUR ---
PATIENT LEFT UNIT AT 1520. ALERT AND ORIENTED X4. UP AD ERIKA IN ROOM. IV DC'D. DENIES PAIN AND NAUSEA. ALL PERSONAL ITEMS LEFT WITH PATIENT. DISCHARGE INSTRUCTIONS SENT WITH PATIENT. VSS ON 1.5L O2. HOURLY ROUNDS HAVE BEEN MAINTAINED THROUGHOUT SHIFT. LEFT WITH SPOUSE VIA CAR.
[2017-03-26 02:08] LABS: ADENOVIRUS Negative (Negative); INFLUENZA A Negative (Negative); INFLUENZA B Negative (Negative); METAPNEUMOVIRUS Negative (Negative); PARAINFLUENZA 1 Negative (Negative); PARAINFLUENZA 2 Negative (Negative); PARAINFLUENZA 3 Negative (Negative); RHINOVIRUS Negative (Negative); RSV A Negative (Negative); RSV B Negative (Negative)
== END 2017-03-25 15:10 | disposition home health service (06) | DRG 177 ==
LOC: M.ERS 16:36 → M.TBA-ER 17:51 → M.ORTHSURG 17:51
PROVIDERS: Emergency Medicine; Internal Medicine Pulmonary Disease; ADMIT Internal Medicine
DX: J15.6 Pneumonia due to other Gram-negative bacteria (principal); I50.33 Acute on chronic diastolic (congestive) heart failure; Z68.44 Body mass index [BMI] 60.0-69.9, adult; R65.10 Systemic inflammatory response syndrome (SIRS) of non-infectious origin without acute organ dysfunction; J44.1 Chronic obstructive pulmonary disease with (acute) exacerbation; J44.0 Chronic obstructive pulmonary disease with (acute) lower respiratory infection; J96.11 Chronic respiratory failure with hypoxia; E66.01 Morbid (severe) obesity due to excess calories; E11.9 Type 2 diabetes mellitus without complications; G47.33 Obstructive sleep apnea (adult) (pediatric); I11.0 Hypertensive heart disease with heart failure; E78.00 Pure hypercholesterolemia, unspecified; Z79.899 Other long term (current) drug therapy; Z87.11 Personal history of peptic ulcer disease; Z87.891 Personal history of nicotine dependence; Z86.711 Personal history of pulmonary embolism

== ENCOUNTER 2017-04-07 10:06 | Inpatient (IN) | payer OTHER ==
[~2017-04-07] VITALS: Ht 165.1 cm; Wt 178.3 kg
[~2017-04-07 10:06] MED LIST changes: +LASIX 20 MG TAB20 MG PO; +LEVAQUIN 750 M750 MG PO; +POTASSIUM CHLO10 MEQ PO; +PREDNISONE 20 M20 MG PO
[2017-04-07 10:14] VITALS: BP 159/106
[2017-04-07 11:54] LABS: ABSOLUTE BASOPHILS 0.1 thou/uL (0.0-0.2); ABSOLUTE EOSINOPHILS 0.3 thou/uL (0.0-0.7); ABSOLUTE MONOCYTES 0.7 thou/uL (0.0-1.2); ABSOLUTE NEUTROPHILS 8.7 thou/uL (1.6-8.1); BASOPHILS 0.5 %; EOSINOPHILS 2.3 %; HEMATOCRIT 43.1 % (42.0-52.0); LYMPHOCYTES 17.1 %; MCH 27.5 pg (26.0-34.0); MCHC 32.6 g/dL (28.0-37.0); MCV 84.3 fL (80.0-100.0); MONOCYTES 5.6 %; MPV 7.4 fl. (7.2-11.1); NUCLEATED RBCS 0 /100WBC; PLATELET COUNT* 136 thou/uL (150-400); POLYS 74.5 %; RBC 5.11 mil/uL (4.50-6.00); RDW-CV 15.2 % (10.5-14.5); WBC 11.7 thou/uL (4.0-11.0)
[2017-04-07 12:02] LABS: INR 1.1; PROTIME 10.7 Seconds (9.20-11.50)
[2017-04-07 12:03] LABS: CALCIUM 8.6 mg/dL (8.5-10.1); CREATININE 1.2 mg/dL (0.6-1.3); POTASSIUM 4.2 mmol/L (3.5-5.1)
[2017-04-07 12:13] LABS: ALBUMIN 3.3 g/dL (3.4-5.0); TOTAL BILIRUBIN 0.5 mg/dL (<0.1-1.0); TROPONIN-I LEVEL 0.15 ng/mL (<0.06)
[2017-04-07 13:09] VITALS: BP 154/87
[2017-04-07 13:28] VITALS: BP 159/99
[2017-04-07 16:00] VITALS: BP 146/89
[2017-04-07 20:19] VITALS: BP 150/85
[2017-04-08] VITALS: BP 141/84
[2017-04-08 04:00] VITALS: BP 123/71
[2017-04-08 08:30] VITALS: BP 135/81
--- NOTE | 2017-04-08 11:40 | EKG ---
[place] [address] ELECTROCARDIOGRAM REPORT Name: SREEKANTHOraliaDEEJAY WOODDeidra Room: [address] ADM IN M.R.#: [id number] Admission: 04/07/17 Attend Phys: Harinder Doe Discharge: Date of : 63 Report #: [id number] THIS REPORT FOR: //name// [facility] ED Test Date: 2017-04-07 Test Time: 11:00:18 Pat Name: DEEJAY FARIAS Department: Room: [facility] Gender: Executive Administrative Asst: Sunny MELENDEZ : 1965 Requested By: Reji Miller Order Number: [id number] MD: Jacoby Rocha Measurements Intervals [place] Rate: 85 P: 34 NM: 162 QRS: 4 QRSD: 88 T: 72 QT: 365 QTc: 434 Interpretive Statements Sinus rhythm Low voltage, precordial leads Abnormal R-wave progression, early transition Minimal ST elevation, diffuse leads Compared to ECG 03/21/2017 16:42:33 No significant changes Electronically Signed On 04-08-2017 11:40:38 [employer]PERVISOR [employer] by Jacoby Rocha [email or web address] <ELECTRONICALLY SIGNED> By: Jacoby Rocha MD, [facility] 04/08/17 1140 1100 1100 Jacoby Rocha MD, [facility] /EPI
[2017-04-08 12:15] LABS: CALCIUM 8.6 mg/dL (8.5-10.1); CREATININE 1.3 mg/dL (0.6-1.3); MAGNESIUM 1.8 mg/dL (1.8-2.4); POTASSIUM 3.8 mmol/L (3.5-5.1)
[2017-04-08 13:30] VITALS: BP 152/82
--- NOTE | 2017-04-08 13:35 | EKG ---
[place] [address] ELECTROCARDIOGRAM REPORT Name: TWAN FARIASROBERTHCARLOS LUO Room: [address] ADM IN M.R.#: [id number] Admission: 04/07/17 Attend Phys: Harinder Doe Discharge: Date of : 63 Report #: [id number] THIS REPORT FOR: //name// [facility] Test Date: 2017-04-07 Test Time: 18:35:55 Pat Name: DEEJAY FARIAS Department: Room: [address] Gender: M Associate Director Financial Aid: [place] : 1965 Requested By: Camacho Ro Order Number: [id number] Darnell MD: Jacoby Rocha Measurements Intervals [place] Rate: 98 P: 42 RI: 160 QRS: 3 QRSD: 89 T: 73 QT: 352 QTc: 450 Interpretive Statements Sinus rhythm ST elevation suggests acute pericarditis Baseline wander in lead(s) V3,V4,V5 Electronically Signed On 04-08-2017 13:35:34 [employer] by Jacoby Rocha [email or web address] <ELECTRONICALLY SIGNED> By: Jacoby Rocha MD, [facility] 04/08/17 1335 1835 34 Jacoby Rocha MD, [facility] /EPI
[2017-04-08 16:30] VITALS: BP 149/97
--- NOTE | 2017-04-08 17:04 | CON ---
[address] [address] CONSULTATION Name: DEEJAY FARIAS [facility] Room: [address] IN M.Mahesh.#: [id number] Admission: 04/07/17 Attend Phys: Harinder Doe Discharge: Date of : 63 Report #: [id number] THIS REPORT FOR: //name// CC: FAM unknown Camacho Ro DATE OF SERVICE: 04/07/2017 HISTORY OF PRESENT ILLNESS: The patient is a 51-year-old [place] who I was asked to see in the hospital today after he complained of being short of breath. The patient is morbidly obese, standing 5 feet 4 inches and weighing 412 pounds. He notes that he previously weighed over 500 pounds. He has sleep apnea, uses CPAP. He has had both knees replaced at [facility]. The patient has had several hospitalizations here at [facility] [place]. He actually saw my partner, Dr. Linda back in 11/2015 when he complained of chest pain. He was actually here at [facility] last month with bronchitis and a pulmonary embolus. He was just discharged a couple of weeks ago. The patient notes that past couple of days, he has again had increasing shortness of breath. He has noticed some chest tightness when he coughs. He has had no bleeding, palpitations. He does feel lightheaded. He finally came to the Emergency Room today. He is admitted for further evaluation and treatment. PAST MEDICAL HISTORY: Otherwise, significant for no other major surgical procedures. He does have a history of hypertension, diabetes. MEDICATIONS: Consist of lisinopril, metformin, Xarelto, Lipitor. ALLERGIES: He has no known drug allergies. FAMILY HISTORY: Negative for heart disease. SOCIAL HISTORY: He is from [place]. He works in a factory. Quit smoking years ago. No longer uses alcohol. REVIEW OF SYSTEMS: He has sleep apnea. No history of stroke, no history of asthma. No history of liver disease, kidney disease, cancer, psychiatric illness. PHYSICAL EXAMINATION: GENERAL: Revealed large male sitting in large wheelchair. He appeared in no acute distress. VITAL SIGNS: Showed a blood pressure 150/90, pulse 90. He was afebrile. HEENT: He was anicteric. Conjunctivae pink. Mucous membranes moist. NECK: Veins difficult to assess due to obesity. Neck is supple. CHEST: Clear to auscultation. CARDIOVASCULAR: [place] [address] CONSULTATION Name: DEEJAY FARIAS [facility] Room: [address]#: [id number] Admission: 04/07/17 Attend Phys: Harinder Doe Discharge: Date of : 63 Report #: [id number] ABDOMEN: Obese. EXTREMITIES: Had trace edema. SKIN: Cool and dry. NEUROLOGIC: Nonfocal. LABORATORY DATA: His workup, he had an echocardiogram on 02/27/2017 that showed left ventricular hypertrophy, ejection fraction 60%, trace tricuspid insufficiency, mild pulmonary hypertension, pulmonary artery pressure of 50 mmHg. His chest x-ray today showed cardiomegaly, atelectasis. No pulmonary edema. He had CT scan of the chest using the PE protocol last month, bilateral pulmonary emboli. Venous duplex scan of the legs from January showed no evidence of DVT. His lab work, sodium 140, creatinine 1.2, glucose 209. Liver function study is normal. Troponin 0.12. White blood cell count 11.7, hemoglobin 14. IMPRESSION AND RECOMMENDATIONS: 1. Recent pulmonary embolus. I would continue anticoagulation. 2. Sleep apnea. 3. Morbid obesity. 4. Hypertension. The patient has been on an CHRIS inhibitor. 5. Hyperlipidemia. The patient is on a statin drug. <ELECTRONICALLY SIGNED> By: Jacoby Rocha MD, FACC 04/08/17 1704 1638 1933Disa Rocha MD, FACC /nt
[2017-04-08 20:30] VITALS: BP 134/81
[2017-04-09 00:02] VITALS: BP 112/73
[2017-04-09 03:56] VITALS: BP 121/83
[2017-04-09 08:00] VITALS: BP 141/91
--- NOTE | 2017-04-09 10:26 | CON ---
[address] [address] CON[facility] Room: [address] ADM IN M.R.#: [id number] Admission: 04/07/17 Attend Phys: Harinder Doe Discharge: Date of : 63 Report #: [id number] THIS REPORT FOR: //name// CC: Jacoby Rocha MD [facility] FAM unknown Camacho Ro DATE OF SERVICE: 04/08/2017 The patient is located in room 211. ATTENDING PHYSICIAN: Camacho Ro MD INDICATION FOR CONSULTATION: Dyspnea, obstructive sleep apnea. HISTORY OF PRESENT ILLNESS: The patient is 51-year-old [place] male who had several hospitalizations. The patient again comes in because he is short of breath. He states he just got his BiPAP at [place] about a week to 10 days ago. He had a physician who I was not familiar with, who scheduled a sleep study out in [place], [place]. It was positive. It appears that he was on BiPAP at 12/5 at home and then also on 2 liters at night. He has tried to wear, but he takes it off during the middle of the night because he has a nose leak. He is with a nasal mask and it seems to give him some difficulties. He has been on Xarelto for his pulmonary emboli and he states he has been compliant in taking it. He denies any hemoptysis with it. PAST MEDICAL HISTORY: He has had a history of questionably COPD, although he has not been a smoker. 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 By history, he may have had a blood clot in his leg a year or two ago. He is not very clear on that. ALLERGIES: He has no known medical allergies. OUTPATIENT MEDICATIONS: Included Xarelto 15 mg b.i.d. and then atorvastatin 20 mg at night. He had finished a prednisone taper, also finished some Levaquin 750 mg daily back on March 25, I believe it stopped on April 03. Was also on Lasix 20 mg once daily and potassium 20 mEq daily, also still supposed to be on lisinopril 20 mg daily, metformin 500 mg b.i.d., oxycodone IR 5 mg t.i.d. OTHER PAST MEDICAL HISTORY: Diabetes mellitus type 2, hypertension. He has had hyperlipidemia in the past. PAST SURGICAL HISTORY: He has had bilateral knee [place] [address] CONSULTATION Name: [facility] Room: [address] IN M.R.#: [id number] Admission: 04/07/17 Attend Phys: Harinder Doe Discharge: Date of : 63 Report #: [id number] surgeries in the past. FAMILY HISTORY: Negative for premature cardiopulmonary disease. SOCIAL HISTORY: The patient is . He is a nonsmoker, nondrinker. Denies any illicit drug use. REVIEW OF SYSTEMS: A 14-point review of systems reviewed and negative except for pertinent positives noted in the HPI. PHYSICAL EXAMINATION: GENERAL: A pleasant 51-year-old male who is alert and oriented, taken a breathing treatment while I am here. VITAL SIGNS: His blood pressure was 152/82 in the left arm with a large cuff. His heart rate is 96, respirations 16 and his temperature is 36.6 degrees. He is 5 feet 7 inches tall, weight is 176 kilograms or 400 pounds. BMI is 65. HEENT: Pupils are midpoint. Teeth are in fair repair. He has a Mallampati score of 3. Tongue is somewhat thick and laps over his back molars. NECK: Shows some redundant neck tissue with a collar size about a size 19. CHEST: Shows clear breath sounds without wheeze or rhonchi. CARDIOVASCULAR: Regular rate and rhythm without murmur, gallop or rub. Heart rate is 96. ABDOMEN: Obese. EXTREMITIES: No calf tenderness. No cyanosis, clubbing or edema. NEUROLOGIC: Seems to be intact and nonfocal, moves all fours to commands. LABORATORY DATA: Hemoglobin is 14, white count is 11,700, normal differential, platelets 136,000. PT and INR within normal limits at 1.1. Chemistry: Sodium is 137, potassium is 3.8, BUN is 19, creatinine is 1.3, glucose is 364. It has been up around 246-326 range. Magnesium is 1.8. Troponin is barely elevated. NT-proBNP was 65. Albumin was 3.3. Echocardiogram from January shows a left ventricular ejection fraction 55% and right ventricular systolic pressure 45 mm. That is the only echo I have seen on him. He had a CT angio in early March showing small bilateral lower lobe pulmonary emboli. No significant pulmonary artery enlargement was seen on the CT angio of the chest. There is a right lower lobe infiltrate or consolidation, which appears to have resolved now on the plain films. It is paravertebral in origin. No PFTs on this patient. I have not his sleep study, which again was done at an outside freestanding institution in [place], [place]. IMPRESSION: 1. Obstructive sleep apnea, probably moderate to severe, oxygen and BiPAP dependent. 2. Dyspnea, multifactorial. 3. Pulmonary emboli. Would continue therapy. 4. Diabetes mellitus [place] 2[place] [address] CONSULTATION Name: DEEJAY FARIAS [facility] Room: [address] IN M.R.#: [id number] Admission: 04/07/17 Attend Phys: Harinder Doe Discharge: Date of : 63 Report #: [id number] 5. Morbid obesity. The patient wanted to know if he could exercise. I told him I would cut down the exercise for now since he has relatively newly diagnosed pulmonary emboli and may be just go 1/2 to 2-1/2 miles per hour to start in 2 weeks at 1.5 or 0% grade and I would not add a grade on it until the next 3-6 months. We will keep on with Xarelto 15 mg b.i.d. He will need another CT angio of the chest in about 6 months to make sure that right lower lobe infiltrate or infarct has resolved. Make sure his other pulmonary emboli have resolved. Follow up on his lower extremity venous Dopplers and make sure there are no clots in his venous system. I think his dyspnea is going to be multifactorial. His room air O2 sats have always been above 93-95%. We can try doing exercise, room air O2 sat to see if he desaturates a bit. We will continue BiPAP. We will try and keep that in the hospital. Try nasal mask or full face mask and see if he does not tolerate that well, to see if he does not get some improvement with this. Thanks again for allowing us to participate in this man's care. We will follow up along with you while he is in the hospital. His sleep machine I think was sent to him by [employer] who is his [employer] company. <ELECTRONICALLY SIGNED> By: Migel Ott MD 04/09/17 1026 [id number] Najera MD /nt
[2017-04-09 12:05] VITALS: BP 136/92
[2017-04-09] MEDS ORDERED: LASIX 40 MG TAB40 M1 PO (13:45)
[2017-04-09 14:48] VITALS: BP 136/92
[2017-04-09 15:43] VITALS: BP 105/71
== END 2017-04-09 16:15 | disposition home health service (06) | DRG 291 ==
LOC: M.ERS 10:06 → M.TBA-ER 12:48 → M.2W 12:48
PROVIDERS: Emergency Medicine; ADMIT Internal Medicine
DX: I11.0 Hypertensive heart disease with heart failure (principal); J96.21 Acute and chronic respiratory failure with hypoxia; Z68.44 Body mass index [BMI] 60.0-69.9, adult; F41.9 Anxiety disorder, unspecified; I50.31 Acute diastolic (congestive) heart failure; G47.33 Obstructive sleep apnea (adult) (pediatric); E66.01 Morbid (severe) obesity due to excess calories; Z86.711 Personal history of pulmonary embolism; Z79.01 Long term (current) use of anticoagulants; E11.9 Type 2 diabetes mellitus without complications; J40 Bronchitis, not specified as acute or chronic; I27.20 Pulmonary hypertension, unspecified; E78.5 Hyperlipidemia, unspecified